=== PATIENT | female | born 1945 | race Caucasian/White ===

== ENCOUNTER 2018-07-10 08:42 | Emergency (ER) | payer MEDICARE ==
[2018-07-10 09:11] VITALS: BP 126/69
[2018-07-10] MEDS ORDERED: Sodium Chloride 0.9% 10 ML Syringe FLUSH PRN (09:20)
--- NOTE | 2018-07-10 09:23 | EDM.PDOC ---
ED HPI GENERAL MEDICAL PROBLEM - General Chief Complaint: General Stated Complaint: RIGHT LEG PAIN, SWOLLEN GROIN AREA Time Seen by Provider: 07/10/18 09:13 Source of Information: Reports: Patient, RN Notes Reviewed History Limitations: Reports: No Limitations - History of Present Illness INITIAL COMMENTS - FREE TEXT/NARRATIVE: 72-year-old female presents emergency department day complaint of a lump in her right groin she states she is doing well yesterday awoke with a painful lump in her groin that did resolve however it is powerhouse tender in that area. Denies any other symptoms, - Related Data Allergies Allergy/AdvReac Type Severity Reaction Status Date / Time No Known Allergies Allergy Verified 11/04/13 09:16 Home Meds: Home Meds Ambrotose Glyconutrional Supplement 11/02/13 [History] Aspirin 325 mg PO DAILY 11/02/13 [History] Essential Oils 1 applic TOP DAILY 11/02/13 [History] Past Medical History HEENT History: Reports: Glaucoma Cardiovascular History: Reports: Arrhythmia Other Cardiovascular History: Previous angiogram Hematologic History: Reports: Anemia - Infectious Disease History Infectious Disease History: Reports: Chicken Pox, Measles, Mumps - Past Surgical History HEENT Surgical History: Reports: Cataract Surgery, Tonsillectomy Social & Family History - Family History Family Medical History: Noncontributory - Tobacco Use Smoking Status *Q: Never Smoker - Caffeine Use Caffeine Use: Reports: Coffee, Tea - Recreational Drug Use Recreational Drug Use: No ED ROS GENERAL - Review of Systems Review Of Systems: See Below Constitutional: Reports: No Symptoms HEENT: Reports: No Symptoms Respiratory: Reports: No Symptoms Cardiovascular: Reports: No Symptoms GI/Abdominal: Reports: Abdominal Pain. Denies: Nausea (Right groin), Vomiting : Reports: No Symptoms Musculoskeletal: Reports: No Symptoms ED EXAM, GENERAL - Physical Exam Exam: See Below Exam Limited By: No Limitations General Appearance: Alert, WD/WN, No Apparent Distress Respiratory/Chest: No Respiratory Distress GI/Abdominal: Soft, No Organomegaly, No Distention, No Abnormal Bruit, No Mass, Tender (Right groin) Course - Vital Signs Last Recorded V/S: Last Vital Signs Temp 96 F 07/10/18 09:02 Pulse 55 L 07/10/18 09:02 Resp 18 07/10/18 09:02 BP 126/69 07/10/18 09:02 Pulse Ox 100 08/17/18 09:02 - Orders/Labs/Meds Orders: Active Orders 24 hr Category Date Time Status Peripheral IV Care [RC] . DIRECTED Care 07/10/18 09:21 Active BASIC METABOLIC PANEL,BMP [CHEM] Urgent Lab 07/10/18 09:25 Received UA W/MICROSCOPIC [URIN] Urgent Lab 07/10/18 09:41 Ordered Iopamidol [Isovue-300 (61%)] Med 07/10/18 10:15 Active 100 ml IV . DIRECTED Lactated Ringers [Ringers, Lactated] 1,000 ml Med 07/10/18 09:30 Active IV ASDIRECTED Sodium Chloride 0.9% [Normal Saline] 73 ml Med 07/10/18 10:15 Active IV ASDIRECTED Sodium Chloride 0.9% [Saline Flush] Med 07/10/18 09:20 Active 10 ml FLUSH ASDIRECTED PRN Peripheral IV Insertion Adult [OM.PC] Urgent Oth 07/10/18 09:20 Ordered Medication Orders Lactated Ringer's (Ringers, Lactated) 1,000 mls @ 999 mls/hr IV ASDIRECTED [facility] Last Admin: 07/10/18 09:35 Dose: 999 mls/hr Sodium Chloride (Normal Saline) 73 mls @ 3 mls/sec IV ASDIRECTED [facility] Last Admin: 07/10/18 11:07 Dose: 3 mls/sec Iopamidol (Isovue-300 (61%)) 100 ml IV . DIRECTED [facility] Last Admin: 07/10/18 11:09 Dose: 100 ml Sodium Chloride (Saline Flush) 10 ml FLUSH ASDIRECTED PRN PRN Reason: Keep Vein Open Last Admin: 07/10/18 09:35 Dose: 10 ml Labs: Laboratory Tests 07/10/18 07/10/18 Range/Units 09:25 09:41 WBC 3.9 L (4.5-11.0) K/uL RBC 4.71 (3.30-5.50) M/uL Hgb 13.2 (12.0-15.0) g/dL Hct 40.0 (36.0-48.0) % MCV 85 (80-98) fL MCH 28 (27-31) pg MCHC 33 (32-36) % Plt Count 216 (150-400) K/uL Neut % (Auto) 58 (36-66) % Lymph % (Auto) 29 (24-44) % [place] % (Auto) 10 H (2-6) % Eos % (Auto) 2 (2-4) % Baso % (Auto) 1 (0-1) % Urine Color Yellow Urine Appearance Clear Urine pH 7.0 (4.5-8.0) Ur Specific [place] 1.005 L (1.008-1.030) Urine Protein Negative (NEGATIVE) mg/dL Urine Glucose (UA) Normal (NEGATIVE) mg/dL Urine Ketones Negative (NEGATIVE) mg/dL Urine Occult Blood Negative (NEGATIVE) Urine Nitrite Negative (NEGATIVE) Urine Bilirubin Negative (NEGATIVE) Urine Urobilinogen Normal (NORMAL) mg/dL Ur Leukocyte Esterase Negative (NEGATIVE) Urine RBC Not seen (0-5) Urine WBC Not seen (0-5) Ur Epithelial Cells Rare Amorphous Sediment Not seen Urine Bacteria Not seen Urine Mucus Not seen Meds: Medications Generic Name Dose Route Start Last Admin Trade Name Freq PRN Reason Stop Dose Admin Lactated Ringer's 1,000 mls @ 999 mls/hr 07/10/18 09:30 07/10/18 09:35 Ringers, Lactated IV 999 mls/hr ASDIRECTED LANA Administration Sodium Chloride 73 mls @ 3 mls/sec 07/10/18 10:15 07/10/18 11:07 Normal Saline IV 3 mls/sec ASDIRECTED LANA Administration Iopamidol 100 ml 07/10/18 10:15 07/10/18 11:09 Isovue-300 (61%) IV 100 ml . DIRECTED LANA Administration Sodium Chloride 10 ml 07/10/18 09:20 07/10/18 09:35 Saline Flush FLUSH 10 ml ASDIRECTED PRN Administration Keep Vein Open Discontinued Medications Generic Name Dose Route Start Last Admin Trade Name Freq PRN Reason Stop Dose Admin Sodium Chloride 10 ml 07/10/18 10:01 07/10/18 11:07 Saline Flush FLUSH 07/10/18 10:02 10 ml ONETIME ONE Administration Departure - Departure Time of Disposition: 11:34 Disposition: Home, Self-Care 01 Condition: Good Clinical Impression: Lymph nodes enlarged - Discharge Information Referrals: Artem Silva MD [Primary Care Provider] - Forms: ED Department Discharge Additional Instructions: Please followup with your primary care provider in 5-7 days if not better, please call return to the emergency department with worsening of symptoms. - My Orders Last 24 Hours: My Active Orders 07/10/18 09:20 Sodium Chloride 0.9% [Saline Flush] 10 ml FLUSH ASDIRECTED PRN Peripheral IV Insertion Adult [OM.PC] Urgent 07/10/18 09:21 Peripheral IV Care [RC] . DIRECTED 07/10/18 09:25 BASIC METABOLIC PANEL,BMP [CHEM] Urgent 07/10/18 09:30 Lactated Ringers [Ringers, Lactated] 1,000 ml IV ASDIRECTED 07/10/18 09:41 UA W/MICROSCOPIC [URIN] Urgent 07/10/18 10:15 Iopamidol [Isovue-300 (61%)] 100 ml IV . DIRECTED Sodium Chloride 0.9% [Normal Saline] 73 ml IV ASDIRECTED - Assessment/Plan Last 24 Hours: My Active Orders 07/10/18 09:20 Sodium Chloride 0.9% [Saline Flush] 10 ml FLUSH ASDIRECTED PRN Peripheral IV Insertion Adult [OM.PC] Urgent 07/10/18 09:21 Peripheral IV Care [RC] . DIRECTED 07/10/18 09:25 BASIC METABOLIC PANEL,BMP [CHEM] Urgent 07/10/18 09:30 Lactated Ringers [Ringers, Lactated] 1,000 ml IV ASDIRECTED 07/10/18 09:41 UA W/MICROSCOPIC [URIN] Urgent 07/10/18 10:15 Iopamidol [Isovue-300 (61%)] 100 ml IV . DIRECTED Sodium Chloride 0.9% [Normal Saline] 73 ml IV ASDIRECTED Plan: Assessment Acuity = acute Site and laterality = groin lymph node 2 x 1 cm Etiology = unclear etiology Manifestations = groin pain Location of injury = Home Lab values = CBC, urinalysis unremarkable BMP pending CT scan describes lymph node above Plan Did review lab work CT scan results with her she is to follow-up with her primary care in the next couple days if it's still causing troubles This note was dictated using [employer] voice recognition software please call with any questions on syntax or grammar.
[2018-07-10] MEDS ORDERED: Lactated Ringers 1,000 ML IV SCH (09:30)
[2018-07-10] MEDS ORDERED: Sodium Chloride 0.9% 10 ML Syringe FLUSH ONE (10:01)
[2018-07-10] MEDS ORDERED: Iopamidol 612 MG/ML 100 ML Bottle IV SCH (10:15)
--- NOTE | 2018-07-10 11:21 | CT ---
Abdomen pelvis CT. History: Right groin lump Technique: IV contrast was administered followed by axial imaging from the lung bases extending throu gh the abdomen and pelvis. Coronal images were reconstructed. Auto dosage reduction and iterative rec onstruction techniques were employed. Comparison: None Findings: Limited evaluation of the lower lung henley demonstrates no abnormalities. There are a few scattered cysts of the liver. The gallbladder, pancreas, spleen are unremarkable. The adrenal glands are normal in size. The kidneys demonstrate symmetric excretion of contrast. There is no hydronephrosis or hydroureter. There are a few small renal cysts on the left. There is a large amount of retained stool within the colon. There are scattered diverticula. There is no wall thickening or inflammation. The appendix is normal. There is a asymmetric mildly prominent right inguinal lymph node. This may correspond to the patient' s palpable abnormality. The node demonstrates a benign appearing fatty hilum. The node measures 2.1 x 1.2 cm. Impression: 1. Mildly prominent benign-appearing right inguinal lymph node. No additional findings of the right g roin are demonstrated. 2. Moderate stool throughout the colon. 3. Small hepatic as well as renal cysts.
== END 2018-07-10 11:49 | disposition home or self-care (01) ==
LOC: JP.ED 08:42
DX: R59.0 Localized enlarged lymph nodes (principal); Z79.82 Long term (current) use of aspirin
CPT/HCPCS: 36415; 74177; 80048; 81001; 85025; 96360; 99284; J7030; J7050; J7120; Q9967

== ENCOUNTER 2021-11-27 06:50 | Emergency (ER) | payer MEDICARE ==
[2021-11-27] MEDS ORDERED: Sodium Chloride 0.9% 10 ML Syringe FLUSH PRN (07:01)
--- NOTE | 2021-11-27 07:04 | EDM.PDOC ---
ED HPI GENERAL MEDICAL PROBLEM - General Chief Complaint: Chest Pain Stated Complaint: CHEST PAIN Time Seen by Provider: 11/27/21 07:01 Source of Information: Reports: Patient, RN Notes Reviewed History Limitations: Reports: No Limitations - History of Present Illness INITIAL COMMENTS - FREE TEXT/NARRATIVE: 76-year-old female presents emergency department day complaint of chest pain, she recently had a angiogram 5 years ago which showed no disease has no stents has never had a myocardial infarction. This particular event started at 4 this morning awoke her from sleep lasted about 30 minutes then resolved she was not short of breath not nauseated did have some diaphoresis. At this time she is chest pain-free she did take a full-strength aspirin prior to arrival - Related Data Allergies Allergy/AdvReac Type Severity Reaction Status Date / Time No Known Allergies Allergy Verified 11/27/21 06:56 Home Meds: Home Meds Aspirin 325 mg PO DAILY 11/02/13 [History] prednisoLONE acetate [Pred Forte 1% Ophth Susp] 1 drop EYEBOTH ASDIRECTED 11/27/21 [History] Past Medical History HEENT History: Reports: Glaucoma Cardiovascular History: Reports: Arrhythmia Other Cardiovascular History: Previous angiogram Hematologic History: Reports: Anemia - Infectious Disease History Infectious Disease History: Reports: Chicken Pox, Measles, Mumps - Past Surgical History HEENT Surgical History: Reports: Cataract Surgery, Tonsillectomy Social & Family History - Family History Family Medical History: No Pertinent Family History - Tobacco Use Tobacco Use Status *Q: Never Tobacco User - Caffeine Use Caffeine Use: Reports: None - Recreational Drug Use Recreational Drug Use: No ED ROS GENERAL - Review of Systems Review Of Systems: See Below Constitutional: Reports: Diaphoresis HEENT: Reports: No Symptoms Respiratory: Reports: No Symptoms Cardiovascular: Reports: Chest Pain GI/Abdominal: Reports: No Symptoms. Denies: Nausea ED EXAM, GENERAL - Physical Exam Exam: See Below Exam Limited By: No Limitations General Appearance: Alert, WD/WN, No Apparent Distress Respiratory/Chest: No Respiratory Distress, Lungs Clear, Normal Breath Sounds, No Accessory Muscle Use, Chest Non-Tender Cardiovascular: Regular Rate, Rhythm, No Murmur GI/Abdominal: Soft, Non-Tender Extremities: No Pedal Edema #1 Interpretation EKG Date: 11/27/21 Time: 07:04 Rhythm: NSR [place]: Normal P-Wave: Present QRS: RBBB ST-T: Normal QT: Normal Comparison: NA - No Prior EKG Course - Vital Signs Last Recorded V/S: Last Vital Signs Temp 97.5 F 11/27/21 06:55 Pulse 50 L 11/27/21 07:37 Resp 12 11/27/21 07:37 BP 125/60 11/27/21 07:37 Pulse Ox 96 11/27/21 07:37 - Orders/Labs/Meds Orders: Active Orders 24 hr Category Date Time Status Cardiac Monitoring [RC] .As Directed Care 11/27/21 07:01 Active Peripheral IV Care [RC] . DIRECTED Care 11/27/21 07:02 Active Sodium Chloride 0.9% [Saline Flush] Med 11/27/21 07:01 Active 10 ml FLUSH ASDIRECTED PRN Peripheral IV Insertion Adult [OM.PC] Stat Oth 11/27/21 07:01 Ordered Saline Lock Insert [OM.PC] Stat Oth 11/27/21 07:01 Ordered EKG 12 Lead [EK] Stat Ther 11/27/21 07:02 Ordered Medication Orders Sodium Chloride (Sodium Chloride 0.9% 10 Ml Syringe) 10 ml FLUSH ASDIRECTED PRN PRN Reason: Keep Vein Open Last Admin: 11/27/21 08:21 Dose: 10 ml Documented by: LUZ Labs: Laboratory Tests 11/27/21 11/27/21 11/27/21 Range/Units 06:55 06:55 10:04 WBC 5.2 (4.5-11.0) K/uL RBC 5.02 (3.30-5.50) M/uL Hgb 14.1 (12.0-15.0) g/dL Hct 42.5 (36.0-48.0) % MCV 85 (80-98) fL MCH 28 (27-31) pg MCHC 33 (32-36) % Plt Count 268 (150-400) K/uL Neut % (Auto) 46.5 (36-66) % Lymph % (Auto) 41.6 (24-44) % [place] % (Auto) 9.8 H (2-6) % Eos % (Auto) 1.3 L (2-4) % Baso % (Auto) 0.8 (0-1) % Sodium 140 (140-148) mmol/L Potassium 4.0 (3.6-5.2) mmol/L Chloride 102 (100-108) mmol/L Carbon Dioxide 30 (21-32) mmol/L Anion Gap 8.5 (5.0-14.0) mmol/L BUN 17 (7-18) mg/dL Creatinine 0.7 (0.6-1.0) mg/dL Est Cr Clr Drug Dosing 58.33 mL/min Estimated GFR (MDRD) > 60 (>60) Glucose 92 (74-106) mg/dL Calcium 9.0 (8.5-10.1) mg/dL Total Bilirubin 0.4 (0.2-1.0) mg/dL AST 22 (15-37) U/L ALT 31 (12-78) U/L Alkaline Phosphatase 93 (46-116) U/L Troponin I High Sens 5.6 7.7 (<=60.3) pg/mL Total Protein 7.3 (6.4-8.2) g/dL Albumin 3.8 (3.4-5.0) g/dL Globulin 3.5 (2.3-3.5) g/dL Albumin/Globulin Ratio 1.1 L (1.2-2.2) Meds: Medications Generic Name Dose Route Start Last Admin Trade Name Freq PRN Reason Stop Dose Admin Sodium Chloride 10 ml 11/27/21 07:01 11/27/21 08:21 Sodium Chloride 0.9% 10 Ml Syringe FLUSH 10 ml ASDIRECTED PRN Administration Keep Vein Open Departure - Departure Time of Disposition: 11:03 Disposition: Home, Self-Care 01 Condition: Fair Clinical Impression: Atypical chest pain Instructions: Nonspecific Chest Pain, Adult Referrals: PCP,None [Primary Care Provider] - Forms: ED Department Discharge Additional Instructions: Continue with regular medications please followup with your primary care provider in 3-5 days if not better, please call return to the emergency department with worsening of symptoms., Sepsis Event Note (ED) - Evaluation Sepsis Screening Result: No Definite Risk - Focused Exam Vital Signs: Vital Signs Temp Pulse Resp BP Pulse Ox 11/27/21 07:37 50 L 12 125/60 96 11/27/21 06:55 97.5 F 55 L 22 H 167/54 H 98 - My Orders Last 24 Hours: My Active Orders 11/27/21 07:01 Cardiac Monitoring [RC] .As Directed Sodium Chloride 0.9% [Saline Flush] 10 ml FLUSH ASDIRECTED PRN Peripheral IV Insertion Adult [OM.PC] Stat Saline Lock Insert [OM.PC] Stat 11/27/21 07:02 Peripheral IV Care [RC] . DIRECTED EKG 12 Lead [EK] Stat - Assessment/Plan Last 24 Hours: My Active Orders 11/27/21 07:01 Cardiac Monitoring [RC] .As Directed Sodium Chloride 0.9% [Saline Flush] 10 ml FLUSH ASDIRECTED PRN Peripheral IV Insertion Adult [OM.PC] Stat Saline Lock Insert [OM.PC] Stat 11/27/21 07:02 Peripheral IV Care [RC] . DIRECTED EKG 12 Lead [EK] Stat Plan: Assessment Acuity = acute Site and laterality = atypical chest pain Etiology = unknown Manifestations = none Location of injury = Home Lab values = CBC, CMP unremarkable troponin negative x2 3 hours apart her heart score was 2, EKG demonstrates a right bundle branch block which is not new per patient no old EKGs are available for review, chest x-ray shows no acute process Plan Plan is to follow-up with primary care for reevaluation in the next 3 to 5 days This note was dictated using [email or web address] voice recognition software please call with any questions on syntax or grammar.
[2021-11-27 07:38] VITALS: BP 125/60; PULSE 50
--- NOTE | 2021-11-27 09:34 | CR ---
CHEST: Portable 11/27/2021 at 7:26 AM CLINICAL HISTORY:Chest pain COMPARISON:CT 2019 FINDINGS: The heart size, pulmonary vascularity and hilar structures are normal. No infiltrate effusion or pneumothorax is seen. There are atherosclerotic changes in the aorta. IMPRESSION: No acute cardiopulmonary process.
== END 2021-11-27 11:13 | disposition home or self-care (01) ==
LOC: JP.ED 06:50
DX: R07.89 Other chest pain (principal); Z79.82 Long term (current) use of aspirin
CPT/HCPCS: 36415; 71045; 71045-26; 80053; 84484; 85025; 93005; 99285-25